=== PATIENT | female | born 1985 | race Caucasian/White ===

== ENCOUNTER 2020-05-01 10:22 | Observation (INO) | payer OTHER ==
[~2020-05-01] VITALS: Ht 160 cm; Wt 90.3 kg
[2020-05-01 10:19] VITALS: BP 109/68
[~2020-05-01 10:22] MED LIST: DSS100 PO; IBUP-2070 PO; PREN-154 PO
[2020-05-01] MEDS ORDERED: FOLI0.4T6 PO (10:25)
[2020-05-01] MEDS ORDERED: CALC-1038 PO (10:25)
== END 2020-05-01 12:10 | disposition home or self-care (01) ==
LOC: 4S 10:22
PROVIDERS: ADMIT Obstetrics & Gynecology; ATTEND Obstetrics & Gynecology
DX: O43.813 Placental infarction, third trimester (principal); Z3A.38 38 weeks gestation of pregnancy
CPT/HCPCS: 59025; 83036; 99219

== ENCOUNTER 2020-05-05 20:45 | Inpatient (IN) | payer OTHER ==
[~2020-05-05] VITALS: Ht 167.6 cm; Wt 89.4 kg
[~2020-05-05 20:45] MED LIST changes: +CALC-1038 PO; +FOLI0.4T6 PO
[2020-05-05 21:15] VITALS: BP 120/71
[2020-05-05] MEDS ORDERED: CITRIC ACID/SODIUM CITRATE 30 ML SOLUTION UDCUP PO PRN (21:30)
[2020-05-05] MEDS ORDERED: METOCLOPRAMIDE HCL 5 MG/ML 2 ML VIAL IVP PRN (21:30)
[2020-05-05] MEDS ORDERED: RINGERS SOLUTION,LACTATED 1,000 ML IV PRN (21:30)
[2020-05-05] MEDS ORDERED: METHYLERGONOVINE MALEATE 0.2 MG/ML VIAL IM PRN (21:30)
[2020-05-05] MEDS ORDERED: FentaNYL CITRATE PF 100 MCG/2 ML VIAL IVP PRN (21:30)
[2020-05-05] MEDS ORDERED: LIDOCAINE/PF 1% 30 ML VIAL SQ PRN (21:30)
[2020-05-05 21:48] LABS: BASOPHILS % (AUTO) 0.9 % (0.0-2.0); EOSINOPHILS % (AUTO) 0.7 % (1.0-6.0); HEMATOCRIT 35.5 % (36-46); HEMOGLOBIN 12.4 g/dL (12.0-16.0); LYMPHOCYTES # (AUTO) 1.8 K/uL (1.0-4.8); MEAN CORPUSCULAR HEMOGLOBIN 30.6 pg (26.0-34.0); MEAN CORPUSCULAR HGB CONC 34.9 G/dL (31.0-37.0); MEAN CORPUSCULAR VOLUME 88 fL (80-100); MONOCYTES # (AUTO) 0.6 K/uL (0.1-1.0); MONOCYTES % (AUTO) 8.7 % (2.0-9.0); NEUTROPHILS # (AUTO) 4.7 K/uL (1.8-7.7); NEUTROPHILS % (AUTO) 64.7 % (40.0-70.0); PLATELET COUNT (AUTO)-OB 115 K/uL (150-450); RED BLOOD CELL COUNT(AUTO) 4.05 MIL/uL (4.00-5.20); RED CELL DISTRIBUTION WIDTH 14.4 % (11.5-14.5)
[2020-05-05 21:49] LABS: COVID AG,FIA SOURCE NASOPHARYNGEAL
[2020-05-05] MEDS: RINGERS SOLUTION,LACTATED 1,000 ML IV SCH (21:56)
[2020-05-05 22:38] LABS: GLUCOMETER DEV NAME(LOC) 4S.; GLUCOSE,POINT OF CARE 100 MG/DL (70-110)
[2020-05-06] MEDS ORDERED: DINOPROSTONE 10 MG VAGINAL SUPPOSITORY VG ONE
[2020-05-06] MEDS: RINGERS SOLUTION,LACTATED 1,000 ML IV SCH ×4 (02:24→22:18)
[2020-05-06] MEDS ORDERED: OXYGEN THERAPY IH SCH (08:00)
[2020-05-06] MEDS ORDERED: MISOPROSTOL 50 MCG TABLET PO ONE (08:30)
[2020-05-06] MEDS ORDERED: -PHARMACY NOTE- MISC ONE (10:15)
[2020-05-06] MEDS ORDERED: LIDOCAINE/PF 1% 30 ML VIAL SQ PRN (11:45)
[2020-05-06] MEDS ORDERED: METHYLERGONOVINE MALEATE 0.2 MG/ML VIAL IM PRN (11:45)
[2020-05-06] MEDS ORDERED: OXYTOCIN 30 UNITS/LACT RINGERS 500 ML IV ONE (11:45)
[2020-05-06] MEDS ORDERED: OXYTOCIN 30 UNITS/LACT RINGERS 500 ML IV PRN (11:45)
[2020-05-06] MEDS ORDERED: ROPIVACAINE HCL/PF 0.2% 100 ML ED ONE (22:45)
[2020-05-07] MEDS ORDERED: AMPICILLIN SODIUM 1 GM/NS 50 ML IV SCH (04:00)
[2020-05-07] MEDS ORDERED: AMPICILLIN SODIUM 2 GM/NS 100 ML IV ONE (04:00)
[2020-05-07] MEDS: RINGERS SOLUTION,LACTATED 1,000 ML IV SCH ×2 (06:11→14:20)
[2020-05-07] MEDS ORDERED: ROPIVACAINE HCL/PF 0.2% 100 ML ED ONE (07:40)
[2020-05-07] MEDS ORDERED: BENZOCAINE 20%/MENTHOL 56 GM SPRAY CANISTER TP PRN (15:00)
[2020-05-07] MEDS ORDERED: ACETAMINOPHEN/CODEINE 300-30 MG TABLET PO PRN ×2 (15:00)
[2020-05-07] MEDS ORDERED: GLYCERIN/WITCH HAZEL LEAF 40 PADS JAR TP PRN (15:00)
[2020-05-07] MEDS ORDERED: CeFAZolin 2 GM/DEXTROSE 50 ML IV ONE (15:00)
[2020-05-07] MEDS ORDERED: LANOLIN 7 GM OINTMENT TP PRN (15:00)
[2020-05-07] MEDS: IBUPROFEN 800 MG TABLET PO SCH ×2 (15:54→22:02)
[2020-05-07] MEDS: MAGNESIUM HYDROXIDE SUSPENSION 30 ML UDCUP PO SCH (22:02)
[2020-05-08] MEDS: MAGNESIUM HYDROXIDE SUSPENSION 30 ML UDCUP PO SCH (08:27)
[2020-05-08] MEDS: IBUPROFEN 800 MG TABLET PO SCH ×2 (08:27→15:04)
[2020-05-08] MEDS ORDERED: SENNA/DOCUSATE SODIUM 8.6-50 MG TABLET PO ONE (14:30)
== END 2020-05-08 15:50 | disposition home or self-care (01) | DRG 807 ==
LOC: 4S 20:45 → PREOBSVTOIN 05-18 21:19
PROVIDERS: ADMIT Obstetrics & Gynecology; ATTEND Obstetrics & Gynecology
PROC: 10D07Z6 Extraction of Products of Conception, Vacuum, Via Natural or Artificial Opening (ICD-10-PCS; principal; 2020-05-07)
PROC: 0KQM0ZZ Repair Perineum Muscle, Open Approach (ICD-10-PCS; 2020-05-07)
PROC: 3E0R3BZ Introduction of Anesthetic Agent into Spinal Canal, Percutaneous Approach (ICD-10-PCS; 2020-05-07)
PROC: 00HU33Z Insertion of Infusion Device into Spinal Canal, Percutaneous Approach (ICD-10-PCS; 2020-05-07)
DX: O66.0 Obstructed labor due to shoulder dystocia (principal); Z37.0 Single live birth; O69.81X0 Labor and delivery complicated by cord around neck, without compression, not applicable or unspecified; O70.1 Second degree perineal laceration during delivery; Z3A.39 39 weeks gestation of pregnancy; Z20.822 Contact with and (suspected) exposure to COVID-19
CPT/HCPCS: 83036; 86850; 86900; 86901; 87426; A9575; J0290; J0690; J2590; J2795; J3010; J7120